=== PATIENT | female | born 1940 | race Caucasian/White ===

== ENCOUNTER → 2017-07-03 | Outpatient (CLI) | payer OTHER | LOC: FIMAGING 15:15 | PROVIDERS: ATTEND Family Medicine | DX: S46.011A Strain of muscle(s) and tendon(s) of the rotator cuff of right shoulder, initial encounter (principal); M75.91 Shoulder lesion, unspecified, right shoulder ==

== ENCOUNTER 2018-08-15 08:08 | Inpatient (IN) | payer OTHER ==
[2018-08-15] MEDS ORDERED: NS 1,000 ML IV ONE (08:10)
[2018-08-15] MEDS ORDERED: diphenhydrAMINE 25 MG CAP PO ONE ×2 (08:10→08:25)
[2018-08-15] MEDS ORDERED: DIAZEPAM 5 MG TAB PO ONE (08:10)
[2018-08-15] MEDS ORDERED: ASPIRIN EC 325 MG TAB PO ONE ×2 (08:10→08:25)
[2018-08-15] MEDS ORDERED: FAMOTIDINE 20 MG TAB PO ONE (08:10)
[2018-08-15] MEDS ORDERED: DIAZEPAM 5 MG TAB ONE (08:25)
[2018-08-15] MEDS ORDERED: FAMOTIDINE 20 MG TAB ONE (08:25)
[2018-08-15] MEDS ORDERED: LIDOCAINE 1% 300 MG/30 ML SDV ONE (08:50)
[2018-08-15] MEDS ORDERED: HEPARIN 10,000 UNIT/10 ML MDV (1,000 UNIT/ML) ONE (08:50)
[2018-08-15] MEDS ORDERED: MIDAZOLAM 2 MG/2 ML VIAL ONE (08:50)
[2018-08-15] MEDS ORDERED: IOPAMIDOL (ISOVUE-370) 150 ML BTL IV ONE ×2 (08:50→10:18)
[2018-08-15] MEDS ORDERED: fentaNYL 100 MCG/2 ML INJ ONE (08:50)
[2018-08-15] MEDS ORDERED: VERAPAMIL 5 MG/2 ML VIAL ONE (08:50)
[2018-08-15 08:51] LABS: PLATELET COUNT 263 10^3/uL (150-400)
[2018-08-15 08:58] LABS: INR 0.98 (0.83-1.16); PROTIME(PATIENT) 13.2 SEC (12.0-15.0)
--- NOTE | 2018-08-15 09:05 | PDPROPOC ---
Sedation Plan of Care Sedation Plan of Care: vital signs stable, mental status noted, patient educated of risks, benefits, alternatives, patient can tolerate sedation ASA Classification: ASA 1 Planned drugs: fentanyl, midazolam Mallampati Score: Class 1 Mallampati Reference Image: Patient passed 3-3-2 rule?: Yes
--- NOTE | 2018-08-15 09:05 | PDHPUP ---
History & Physical Update H&P update statement: This history and physical update is based on an assessment of the patient which was completed after admission or registration (within 24 hours), but prior to the surgery/procedure. H&P update: H&P reviewed & patient examined, no change in patient's condition since H&P completed
[2018-08-15] MEDS ORDERED: BIVALIRUDIN 250 MG/5 ML VIAL IV ONE (09:47)
[2018-08-15] MEDS ORDERED: PRASUGREL HCL 10 MG TAB ONE (10:35)
[2018-08-15] MEDS ORDERED: HYDROCODONE/APAP 5/325 TAB PO PRN (11:02)
[2018-08-15] MEDS ORDERED: LORazepam 2 MG/ML INJ IVP PRN (11:02)
[2018-08-15] MEDS ORDERED: ATROPINE SULFATE 1 MG/10 ML SYR IVP PRN (11:02)
[2018-08-15] MEDS ORDERED: TEMAZEPAM 15 MG CAP PO PRN (11:02)
[2018-08-15] MEDS ORDERED: ONDANSETRON 4 MG/2 ML VIAL IVP PRN (11:02)
[2018-08-15] MEDS ORDERED: PRASUGREL HCL 10 MG TAB PO ONE (11:02)
[2018-08-15] MEDS ORDERED: NITROGLYCERIN 0.4 MG BTL SL PRN (11:02)
[2018-08-15] MEDS ORDERED: NS 1,000 ML IV SCH (11:15)
--- NOTE | 2018-08-15 11:20 | PDDXCAT ---
Diagnostic Cath Note - . Date: 08/15/18 Trans Router: Rl Indication: other (Angina and abnormal stress echo.) - Procedure Access: right groin Procedure: left heart catheterization, coronary angiography, left ventriculogram , other (PCI of the LAD) - Materials Left Heart Cath size: 6F Left Heart Cath materials: standard multipack (JL4, JR4, pigtail) - Findings-Left Heart Catheterization LM: Angiographically normal. LAD: Proximal LAD 90%; remainder of vessel appears normal. LCX: Angiographically normal. RCA: Angiographically normal. LVEF: 65% Wall motion: Normal. Complications: None Estimated blood loss: <50ml Closure method: Angioseal Assessment: 1) Normal LV systolic function. 2) CAD as described above. 3) Successful PCI of the LAD using a single drug coated stent. Intervention: Based on the patient's clinical history and diagnostic angiography, the decision was made to perform PCI of the LAD. The patient received intravenous Angiomax. A 6 [place] 3.5 guide catheter was advanced to the left main. A Luge guidewire was advanced to the distal LAD. Predilatation of the target which was performed with a 2.5 x 8 mm Emerge balloon. A 3.0 x 12 mm Synergy stent was then positioned and deployed at high pressure. Final angiograms demonstrated 0% residual stenosis and HANY-III flow.
--- NOTE | 2018-08-15 14:30 | CPEKG ---
Test Reason : OPEN Blood Pressure : / mmHG Vent. Rate : 070 BPM Atrial Rate : 069 BPM P-R Int : 180 ms QRS Dur : 088 ms QT Int : 400 ms P-R-T Axes : 066 038 062 degrees QTc Int : 432 ms Sinus rhythm Anteroseptal infarct, age indeterminate Confirmed by Bora Patrick ([id number]) on 08/15/2018 2:30:09 PM Referred By: Confirmed By:Bora Patrick
[2018-08-16] MEDS ORDERED: NITROGLYCERIN 0.4 MG BTL SL PRN (08:14)
[2018-08-16] MEDS: MULTIVITAMINS 1 EACH TAB PO SCH (08:57)
[2018-08-16] MEDS: ASPIRIN EC 325 MG TAB PO SCH (08:57)
[2018-08-16] MEDS: ASCORBIC ACID 500 MG TAB PO SCH (08:57)
[2018-08-16] MEDS: CALCIUM CARBONATE 500 MG TAB PO SCH (08:57)
[2018-08-16] MEDS: CHOLECALCIFEROL VIT D3 1,000 UNITS TAB PO SCH (08:57)
[2018-08-16] MEDS ORDERED: amLODIPine BESYLATE 5 MG TAB PO SCH (09:00)
[2018-08-16] MEDS: PRASUGREL HCL 5 MG TAB PO SCH (09:51)
[2018-08-16] MEDS ORDERED: LIDOCAINE 1% 300 MG/30 ML SDV ONE (12:29)
[2018-08-16] MEDS ORDERED: THROMBIN (BOVINE) 5,000 UNIT VIAL TP ONE (12:30)
--- NOTE | 2018-08-16 13:03 | PDCARPN ---
Cardiology Progress Note Chief Complaint: Chest pain Assessment/Plan: Assessment: CAD... Admit for Cardiac Angiogram due to an Abnormal Echo stress test. 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 PCI of LAD with KORI stent with no complications. Stress test done due to decrease energy and SOB with exertion. Today she feels better than has in a long time. NO chest pain or SOB. Mild Right groin pain at cath insertion site. On my exam she has a significant hematoma 5x5 cm. with little ecchymosis. With pressure was able to reduce to 3x3 cm. She had a ultrasound to further evaluate. She was found to have a small 2 CM Pseudoaneurysm, with recommendation for consideration for Thrombin injection. 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 She will have help the first couple weeks. [id number], it was felt in her best interest to proceed with the Thrombin injection. This is scheduled for 2 PM today. Will plan to monitor closely post Injection. Likely. she will need another overnight stay. However, if she is very stable consider discharge late afternoon. Dr Ch[place] Woods was informed of this complication. He will be on-call the remainder of today. All discharge teaching was done this morning. She is interested in Cardiac Rehab. They will call her Saturday to set up an appointment. She has a follow up with Dr Patrick 08/25/18 She is not on a Statin due to severe muscle pain previously. Will discuss further with options as an out patient. Plan:Thrombin injection this afternoon. Discharge later today if stable post Thrombin injection, or in the morning. 08/16/18 12:44 08/16/18 14:42 Subjective: I feel much better today. No SOB or chest discomfort. Reviewed/Discussed With: multidisciplinary team Time Spent with Patient: greater than 25 minutes Time Spent with Patient: Greater than 25 minutes spent on this patients care, greater than 50% of time spent counseling, educating, and coordinating care regarding the above mentioned plan. Objective: Vital Signs (8 Hrs) Temp Pulse Resp BP Pulse Ox 08/16/18 12:24 36.8 C 73 12 132/75 H 97 08/16/18 07:58 37.0 C 78 16 108/66 97 Intake/Output (24 Hrs) 09/14/18 09/15/18 09/16/18 05:59 05:59 05:59 Intake Total 1950 Output Total 200 Balance 1750 Intake: Oral (ml) 450 IV Intake (ml) 500 IV Infused (ml) 1000 Ns 1,000 ml @ 100 mls/hr 1000 IV CONT ADRYAN Rx#: [id number] Output: Urine (ml) 200 Bedpan 200 Other: Weight 47.6 kg Number of Voids Bedpan 1 Toilet 3 Result Diagrams: 08/16/18 15:30 08/15/18 08:20 - Physical Exam Constitutional: no apparent distress Cardiovascular: regular rate and rhythm, no murmurs, no rubs, no gallops Peripheral Pulses: 2+: carotid (R), carotid (L), femoral (L), dorsalis-pedis (R) , dorsalis-pedis (L), 4+: femoral (R) Respiratory: clear to auscultate bilat, no crackles, no wheezes Skin: warm, no edema, other (Right groin hematoma [id number]--Efhemcq to 2x2 cm with pressure.) Neurologic: AAOx3 Psychiatric: cooperative, interactive ICD10 Worksheet Patient Problems: Problems Problem Status Onset CAD (coronary artery disease) Acute
[2018-08-16] MEDS: ACETAMINOPHEN 325 MG TAB PO PRN (13:48)
--- NOTE | 2018-08-16 14:31 | ASMTCMCOM ---
CM Note CM Note Notes: Patient admitted for an Angiogram and is scheduled for a Thrombin Injection at 1400 today - potentially could d/c after if doing well. At baseline, patient is independent. She will likely d/c home independently and follow-up with Cardiac Rehab early next week. CM available should needs arise. Plan: Home Independent with Outpatient Cardiac Rehab f/u. Date Signed: 08/16/2018 02:30 PM Electronically Signed By:Alexandra Suggs RN
--- NOTE | 2018-08-16 15:04 | PDMN ---
Medical Necessity Medical necessity: [facility] [place] M52 Angioplasty, PCI: 78 y/o s/p cardiac angioplasty ( PCI for LAD) for abn echo stress test, overnight developed entry site complication: significant hematoma 5x5cm to right groin cath insertion site, U/ S to eval, found to have pseudoaneurysm, thrombin injection scheduled for today. Pt will likely need another overnight stay for close monitoring post injection. Switch to IP status per MD order 08/16/18 @9408
[2018-08-16 16:15] LABS: PLATELET COUNT 250 10^3/uL (150-400)
[2018-08-17] MEDS: ACETAMINOPHEN 325 MG TAB PO PRN (04:53)
[2018-08-17 09:03] VITALS: BP 132/67
[2018-08-17] MEDS: MULTIVITAMINS 1 EACH TAB PO SCH (09:49)
[2018-08-17] MEDS: CHOLECALCIFEROL VIT D3 1,000 UNITS TAB PO SCH (09:49)
[2018-08-17] MEDS: PRASUGREL HCL 5 MG TAB PO SCH (09:49)
[2018-08-17] MEDS: CALCIUM CARBONATE 500 MG TAB PO SCH (09:49)
[2018-08-17] MEDS: ASPIRIN EC 325 MG TAB PO SCH (09:49)
[2018-08-17] MEDS: ASCORBIC ACID 500 MG TAB PO SCH (09:49)
--- NOTE | 2018-08-17 12:18 | PDCARPN ---
Cardiology Progress Note Assessment/Plan: Assessment: 1. CAD with PCI to mid LAD 2. Rt common femoral A. pseudoanuerysm s/p thrombin injection. Plan: OK to discharge home Post catheterization instructions discussed Follow up in our office has been scheduled. 08/17/18 12:18 Subjective: Mrs. Mar underwent successful PCI to mid LAD on Saturday, Aug 15, 2018. Post op course with small pseudoanuerysm and underwent US guided thrombin injection yesterday. Repeat US today demonstrates resolution of aneurysm. She is feeling well. No new complaints. No hematoma or ecchymosis at right grin site. distal pulses in tact. Reviewed/Discussed With: multidisciplinary team Objective: Vital Signs (8 Hrs) Temp Pulse Resp BP Pulse Ox 08/17/18 09:01 36.7 C 77 16 132/67 H 97 Intake/Output (24 Hrs) 08/16/18 08/17/18 08/18/18 05:59 05:59 05:59 Intake Total 1950 650 Output Total 200 Balance 1750 650 Intake: Oral (ml) 450 650 IV Intake (ml) 500 IV Infused (ml) 1000 Ns 1,000 ml @ 100 mls/hr 1000 IV CONT ADRYAN Rx#: [id number] Output: Urine (ml) 200 Bedpan 200 Other: Weight 47.6 kg Number of Voids Bedpan 1 Toilet 3 Result Diagrams: 08/16/18 15:30 08/15/18 08:20 - Physical Exam Ears, Nose, Mouth, Throat: moist mucous membranes Cardiovascular: regular rate and rhythm Peripheral Pulses: 2+: femoral (R), femoral (L), dorsalis-pedis (R), dorsalis- pedis (L) Skin: no rashes Musculoskeletal: no muscular tenderness Neurologic: AAOx3, CN II-XII grossly intact Psychiatric: cooperative, interactive, following commands ICD10 Worksheet Patient Problems: Problems Problem Status Onset CAD (coronary artery disease) Acute - ICD10 Problem Qualifiers (1) CAD (coronary artery disease)
--- NOTE | 2018-08-17 13:11 | ASMTLACE ---
LACE Length of stay for Answers: Less than 1 day current admission Comorbidities - select Answers: Coronary Artery Disease all that apply # of Emergency department Answers: 0 visits in the last 6 months Score: 2 Date Signed: 08/17/2018 01:10 PM Electronically Signed By:Jeanie Pool RN
--- NOTE | 2018-08-17 13:15 | ASMTCMCOM ---
CM Note CM Note Notes: Patient chart reviewed. Medically cleared for discharge to home./ No needs identified. CM available should needs arise. Plan: Home independently. Date Signed: 08/17/2018 01:15 PM Electronically Signed By:Jeanie Pool RN
--- NOTE | 2018-08-17 13:21 | GDS ---
INDICATION FOR ADMISSION: Abnormal stress echocardiogram. HOSPITAL COURSE: The patient is a pleasant 78-year-old female who was admitted after an abnormal str ess echocardiogram. She went to the label remover Saturday afternoon with Dr. Balta Shine demonstrating a 90% proximal LAD lesion. She underwent successful PCI with a 3.0 x 12 mm Synergy drug-eluting sten t. Of note, her circumflex and right coronary artery were angiographically normal with left ventricu lar function with LVEF of 65%. Her postoperative course was complicated by evidence of pseudoaneurysm. She underwent thrombin injec tion yesterday, August 16, 2018, with Dr. Joi Morrow. Repeat ultrasound this morning demonstrates co mplete resolution of pseudoaneurysm. The patient is feeling well this morning. She remains hemodynamically stable. Right groin site is w ithout hematoma or ecchymosis. Distal pulses are intact. Of note, she does have a history of statin allergy and will not be discharged on statin therapy. MEDICATIONS: Cardiac medications at time of discharge: 1. Effient 5 mg 1 tab daily. 2. Aspirin 325 mg daily. 3. Nitroglycerin 0.4 mg sublingual q.5 minutes p.r.n. chest pain. 4. Vitamin D3 1000 units daily. 5. Vitamin C 500 mg daily. 6. Multivitamin daily. 7. Alendronate 70 mg q. weekly on Saturday. 8. Calcium carbonate 500 mg daily. The patient is scheduled to follow up with Dr. Bora Patrick at [facility] office on Aug at 10 a.m. EXAM: GENERAL: At time of discharge, the patient is awake, alert, oriented, appropriate. No appare nt distress. NECK: There is no evidence of JVP or carotid bruits. LUNGS: Are clear to auscultatio n bilaterally. CARDIAC EXAM: Is S1, S2. Regular rate and rhythm. No murmurs, rubs, or gallops. A BDOMEN: Right groin site without hematoma or ecchymosis. PULSES: Distal pulses are intact bilateral ly. VITAL SIGNS: Blood pressure 132/67, heart rate of 77 in sinus rhythm, oxygen saturation 97% on room air, temperature 36.7. LABORATORY DATA: At time of discharge, white blood cell count 7.26, hemoglobin 12.9, hematocrit 37, platelet count 250. Sodium 142, potassium 4.0, chloride 105, bicarb 27, BUN 20, creatinine 0.6, gluc ose 88, magnesium 2.1, total cholesterol 214, triglycerides 66, HDL 82, and LDL 119. PLAN: 1. Patient will be discharged home on the above medications and be given instructions regarding dual antiplatelet therapy of aspirin and Effient. 2. Patient is scheduled to follow up with Dr. Bora Patrick on August 25, 2018 at 10 a.m. 3. Post left heart catheterization and instructions have been discussed in detail. /[id number]/MODL
--- NOTE | 2018-08-18 16:51 | CPEKG ---
Test Reason : OPEN Blood Pressure : / mmHG Vent. Rate : 073 BPM Atrial Rate : 073 BPM P-R Int : 202 ms QRS Dur : 087 ms QT Int : 411 ms P-R-T Axes : 085 073 062 degrees QTc Int : 453 ms Sinus rhythm Anteroseptal infarct, age indeterminate Confirmed by Fermin Pitt ([id number]) on 08/18/2018 4:51:15 PM Referred By: Confirmed By:Fermin Pitt
[2018-08-20] MEDS ORDERED: ALENDRONATE SODIUM 70 MG TAB PO SCH (07:00)
== END 2018-08-17 13:36 | disposition home or self-care (01) | DRG 247 ==
LOC: FCATH 08:08 → F2W 10:53 → OBSVTOIN 08-16 14:40
PROVIDERS: ADMIT Internal Medicine Interventional Cardiology; ATTEND Internal Medicine Interventional Cardiology
DX: I25.10 Atherosclerotic heart disease of native coronary artery without angina pectoris (principal); I72.4 Aneurysm of artery of lower extremity; E78.5 Hyperlipidemia, unspecified; Z23 Encounter for immunization
CPT/HCPCS: 81225-90; C1725; C1760; C1769; C1874; C1887; C9600; G0008; J0583; J1644; J2250; J3010; Q9967

== ENCOUNTER 2018-08-26 18:02 | Emergency (ER) | payer OTHER ==
--- NOTE | 2018-08-26 19:15 | EDPHY ---
H & P Stated Complaint: STENTS 08/15 ON EFFIENT BLEEDING ORALLY SINCE THIS AFTERNOON Time Seen by Provider: 08/26/18 19:15 HPI/ROS: HPI CHIEF COMPLAINT: Possible nose bleed. HISTORY OF PRESENT ILLNESS: Very pleasant 78-year-old female, presents emergency room stating that she believes she is having a posterior nosebleed as she was pulling clots of blood from the posterior pharynx. States she was swallowing blood. [place] like it was dripping from the back of her nose. Denies any hemoptysis. Denies chest pain shortness of breath she recently had a cardiac catheterization with stent placement. Placed on aspirin and prasugrel. Of note upon arrival to the emergency room there is no further nose bleeding or evidence of bleed on exam. However there is a small cut to the middle of her tongue that has a small fresh scab on it I wonder if this is where she was bleeding as I evaluated her posterior pharynx as well as bilateral Nare passages on exam and I do not appreciate any active bleeding. At this time plan will be for observation Past Medical History: Coronary artery disease with recent stent placement Past Surgical History: PTCA Social History: Denies drugs alcohol tobacco. Family History: Noncontributory ROS REVIEW OF SYSTEMS: 10 Systems were reviewed and negative with the exception of the elements mentioned in the history of present illness. Exam Constitutional triage nursing summary reviewed, vital signs reviewed, awake/ alert. Eyes normal conjunctivae and sclera, EOMI, PERRLA. HENT bilateral nares, and posterior pharynx reviewed, no evidence of active bleeding. On the mid aspect of tongue there is a small laceration 2 cm. Scabbed over. normal inspection, atraumatic, moist mucus membranes, no epistaxis, neck supple/ no meningismus, no raccoon eyes. Respiratory clear to auscultation bilaterally, normal breath sounds, no respiratory distress, no wheezing. Cardiovascular rate normal, regular rhythm, no murmur, no edema, distal pulses normal. Gastrointestinal soft, non-tender, no rebound, no guarding, normal bowel sounds, no distension, no pulsatile mass. Genitourinary no CVA tenderness. Musculoskeletal no midline vertebral tenderness, full range of motion, no calf swelling, no tenderness of extremities, no meningismus, good pulses, neurovascularly intact. Skin pink, warm, & dry, no rash, skin atraumatic. Neurologic awake, alert and oriented x 3, AAOx3, moves all 4 extremities equally, motor intact, sensory intact, CN II-XII intact, normal cerebellar, normal vision, normal speech. Psychiatric normal mood/affect. Heme/Lymph/Immune no lymphadenopathy. Differential Diagnosis: Includes but is not limited to in a particular order possible posterior nose bleed, anterior nose bleed, posterior pharynx bleed, tongue bleeding Medical Decision Making: Plan for this patient there is no evidence of bleeding on exam at this time. Will continue to monitor. Re-evaluation: 2013: Patient has been observed here for over 2 hr in the emergency room without any further bleeding. I did evaluate her extensively and I do not see any or oropharyngeal bleeding is possible came from very small tongue laceration. Patient is eager and requested to be discharged. Do recommend if she has recurrence of bleeding including nose, oropharynx, tongue and she has trouble stopping this to return to the emergency room. Source: Patient - Personal History Current Tetanus Diphtheria and Acellular Pertussis (TDAP): Yes - Medical/Surgical History Hx Asthma: No Hx Chronic Respiratory Disease: No Hx Diabetes: No Hx Cardiac Disease: Yes Hx Renal Disease: No Hx Cirrhosis: No Hx Alcoholism: No Hx HIV/AIDS: No Hx Splenectomy or Spleen Trauma: No Other PMH: L HAND FX. ANKLE FX. LUMBAR COMPRESSION FX. HTN. CARDIAC STENTS - Social History Smoking Status: Former smoker Constitutional: Initial Vital Signs Temperature (C) 36.7 C 08/26/18 18:07 Heart Rate 85 08/26/18 18:07 Respiratory Rate 18 08/26/18 18:07 Blood Pressure 152/81 H 08/26/18 18:07 O2 Sat (%) 96 08/26/18 18:07 O2 Delivery Mode Room Air Allergies/Adverse Reactions: cortisone Allergy (Verified 08/26/18 18:03) Bpkjvwp-Zmh-Uvf Reductase Inhibitor Allergy (Verified 08/26/18 18:03) Other-Enter Comments Home Medications: Medication Instructions Recorded Ascorbic Acid [Vitamin C 500 mg 500 mg PO DAILY 08/09/15 (*)] Cholecalciferol Vit D3 [Vitamin D3 1,000 units PO DAILY 08/09/15 (*)] Multivitamins [Multivitamin (*)] 1 each PO DAILY 08/09/15 Alendronate Sodium [Fosamax 70 MG 70 mg PO WE@0700 09/14/18 (*)] Calcium Carbonate [Oyster Shell 500 mg PO DAILY 08/15/18 Calcium 500 mg (*)] Nitroglycerin [Nitrostat 0.4 mg 0.4 mg SL Q5M PRN 08/15/18 (*)] Acetaminophen [Tylenol 325mg (*)] 650 mg PO Q4HRS PRN tab 08/16/18 Aspirin EC [Aspirin EC 325 mg (*)] 325 mg PO DAILY tab 08/16/18 Prasugrel HCl [Effient 5mg (*)] 5 mg PO DAILY #30 tab 08/16/18 Departure - Departure Disposition: Home, Routine, Self-Care Clinical Impression: Epistaxis Condition: Good Instructions: Nosebleed (ED) Additional Instructions: 1. Return emergency room if you have any further bleeding questions or concerns. Referrals: Zulema Gonzáles MD [Primary Care Provider] - As per Instructions
[2018-08-26] MEDS ORDERED: OXYMETAZOLINE 30 ML NASAL SPRAY ONE (19:17)
[2018-08-26 20:10] VITALS: BP 138/85
== END 2018-08-26 20:20 | disposition home or self-care (01) ==
DX: R04.0 Epistaxis (principal); I25.10 Atherosclerotic heart disease of native coronary artery without angina pectoris; Z79.82 Long term (current) use of aspirin; Z95.5 Presence of coronary angioplasty implant and graft

== ENCOUNTER 2019-01-18 12:05 | Emergency (ER) | payer OTHER ==
--- NOTE | 2019-01-18 13:27 | EDPHY ---
H & P Time Seen by Provider: 01/18/19 12:59 HPI/ROS: CHIEF COMPLAINT: Left-sided epistaxis HISTORY OF PRESENT ILLNESS: 78-year-old X female with history of chronic anticoagulation secondary to cardiac stents complaining of nosebleed for the past 4 hr from the left side. No dizziness. No chest pain. No headache. No nausea no vomiting. PHYSICAL EXAM (Prior to examination, patient consented to physical exam, hands were washed and my usual and customary physical exam procedures followed) 1) GENERAL: Well-developed, well-nourished, alert and oriented. Appears to be in no acute distress. 2) HEAD: Normocephalic 3) ENT: sclera anicteric . Left-sided bleeding Kiesselbach's plexus noted. This is uncontrolled with direct pressure 4) LUNGS: Breathing comfortably. Smoking Status: Former smoker Constitutional: Initial Vital Signs Temperature (C) 36.9 C 01/18/19 12:11 Heart Rate 108 H 01/18/19 12:11 Respiratory Rate 20 01/18/19 12:11 Blood Pressure 146/109 H 01/18/19 12:11 O2 Sat (%) 94 01/18/19 12:11 O2 Delivery Mode Room Air Allergies/Adverse Reactions: cortisone Allergy (Verified 01/18/19 12:14) Ghugnfn-Ubj-Mmc Reductase Inhibitor Allergy (Verified 01/18/19 12:14) Other-Enter Comments Home Medications: Medication Instructions Recorded Acetaminophen [Tylenol 325mg (*)] 650 mg PO Q4HRS PRN tab 08/16/18 Prasugrel HCl [Effient 5mg (*)] 5 mg PO DAILY #30 tab 08/16/18 Zetia 01/18/19 MDM/Departure - [facility] Procedures: Procedure: Epistaxis control. Indication: nosebleed not controlled by direct pressure. Risks, benefits, alternatives discussed with patient and consent obtained. The left nares was packed with rapid rhino packing Following the procedure the patient was re-examined and the bleeding was well controlled. Patient was ambulated around the emergency department remains hemostatic. The patient tolerated the procedure well. The procedure was performed by myself. At discharge the patient's nose is hemostatic. ED Course/Re-evaluation: Re-evaluation with serial exams. Patient remains hemostatic after placement of the rapid rhino packing. Today is Saturday. Recommend follow up later this week with ENT. Patient feels comfortable being discharged. All questions and concerns addressed by myself. Patient given my usual and customary discharge precautions and instructions regarding their clinical impression. Care of patient under supervision of secondary supervising physician Dr Joseph . - Depart Disposition: Home, Routine, Self-Care Clinical Impression: Left-sided epistaxis Condition: Good Instructions: Nosebleed (ED) Referrals: Rochelle Cruz MD [Medical Doctor] - 01/22/19
[2019-01-18 14:15] VITALS: BP 150/85
== END 2019-01-18 14:43 | disposition home or self-care (01) ==
PROC: 2Y41X5Z Packing of Nasal Region using Packing Material (ICD-10-PCS; principal; 2019-01-18)
DX: R04.0 Epistaxis (principal); Z79.01 Long term (current) use of anticoagulants; Z87.891 Personal history of nicotine dependence